=== PATIENT | male | born 2005 | race Caucasian/White ===

== ENCOUNTER 2024-02-15 13:28 | Emergency (ER) | payer OTHER ==
[~2024-02-15] VITALS: Ht 188 cm; Wt 84.8 kg
[~2024-02-15 13:28] MED LIST: CIPRO500 MG PO; METRONIDAZOLE500 MG PO; ONDANSETRON ODT4 MG SL; PANTOPRAZOLE SO40 MG PO; PREDNISONE10 MG PO; VALTREX1000 MG PO; ZYVOX100 MG/5 M PO; ZYVOX600 MG PO
[2024-02-15 13:53] LABS: BASOPHILS % 0.6 % (0.0-1.0); EOSINOPHILS # (AUTO) 0.1 (0.0-0.4); EOSINOPHILS % 0.9 % (0.0-6.0); HEMATOCRIT 44.8 % (38.2-49.6); HEMOGLOBIN 14.1 g/dL (14.0-18.0); LYMPHOCYTES # (AUTO) 2.1 (1.0-3.2); LYMPHOCYTES % 31.8 % (18.0-39.1); MEAN CORPUSCULAR HGB CONC 31.5 g/dL (31-35); MEAN CORPUSCULAR VOLUME 89.1 fL (81-99); MONOCYTES # (AUTO) 0.5 (0.2-0.8); MONOCYTES % 7.7 % (4.4-11.3); NEUTROPHILS # (AUTO) 3.8 (2.1-6.9); NEUTROPHILS % 58.8 % (38.7-80.0); PLATELET COUNT 351 x10e3/uL (140-360); RED BLOOD COUNT 5.03 x10e6/uL (4.3-5.7); RED CELL DISTRIBUTION WIDTH 12.9 % (11.7-14.4); WHITE BLOOD COUNT 6.47 x10e3/uL (4.8-10.8)
[2024-02-15] MEDS: SODIUM CHLORIDE 0.9% 1000ML 1,000 ML IV SCH (13:59)
[2024-02-15] MEDS: ONDANSETRON HCL INJ 2MG/ML 2ML 2 MG/ML VIAL IV STA (13:59)
[2024-02-15 14:13] LABS: ALBUMIN 4.6 g/dL (3.5-5.0); ALBUMIN/GLOBULIN RATIO 1.6 (0.8-2.0); BILIRUBIN,TOTAL 0.5 mg/dL (0.2-1.2); CALCIUM 10.1 mg/dL (8.4-10.2); CREATININE, SERUM 0.81 mg/dL (0.72-1.25); TOTAL PROTEIN 7.4 g/dL (6.5-8.1)
[2024-02-15 14:17] LABS: BILIRUBIN,URINE NEGATIVE (NEGATIVE); CLARITY,URINE CLEAR (CLEAR); COLOR,URINE YELLOW (YELLOW); GLUCOSE, URINE NEGATIVE (NEGATIVE); KETONES,URINE NEGATIVE (NEGATIVE); LEUKOCYTE ESTERASE ,URINE NEGATIVE (NEGATIVE); NITRITE,URINE NEGATIVE (NEGATIVE); PH,URINE 8 (5 - 7); PROTEIN,URINE DIPSTICK NEGATIVE (NEGATIVE); URINE UROBILINOGEN 0.2 mg/dL (0.2 - 1)
[2024-02-15 14:18] LABS: BACTERIA,URINE FEW /HPF; EPITHELIAL CELLS,URINE FEW /LPF; RBC,URINE 21-50 /HPF (0-5); WBC,URINE (MAN) 0-5 /HPF (0-5)
[2024-02-15] MEDS: DICYCLOMINE HCL 20 MG/2 ML VIAL IM ONE (15:16)
[2024-02-15 16:39] VITALS: PULSE 79; RESP 16; TEMP 98.8; O2SAT 99
[2024-02-15] MEDS ORDERED: DICYCLOMINE HCL20 MG PO (16:45)
[2024-02-15] MEDS ORDERED: IOPAMIDOL 370 MG/ML 100 ML INFUS..BTL INJ ONE (17:16)
== END 2024-02-15 17:19 | disposition home or self-care (01) ==
LOC: ER 14:47
DX: R50.9 Fever, unspecified (principal); K52.9 Noninfective gastroenteritis and colitis, unspecified; R10.11 Right upper quadrant pain; R11.0 Nausea
CPT/HCPCS: 36415; 74177; 80053; 81001; 85025; 99284; J0500; J2405; J2470; J7030; Q9967

== ENCOUNTER 2024-06-14 15:24 | Emergency (ER) | payer OTHER ==
[~2024-06-14] VITALS: Ht 188 cm; Wt 84.8 kg
[~2024-06-14 15:24] MED LIST changes: +DICYCLOMINE HCL20 MG PO
[2024-06-14 16:11] VITALS: PULSE 85; RESP 18; TEMP 98.2; O2SAT 100
[2024-06-14] MEDS ORDERED: MESALAMINE1.2 GM PO (16:33)
[2024-06-14] MEDS ORDERED: PREDNISONE50 MG PO (16:33)
[2024-06-14] MEDS: METHYLPREDNISOLONE SOD SUCC 125 MG/2ML VIAL IM STA (16:37)
== END 2024-06-14 16:50 | disposition home or self-care (01) ==
LOC: ER 16:14
DX: R10.84 Generalized abdominal pain (principal); K52.9 Noninfective gastroenteritis and colitis, unspecified; R11.2 Nausea with vomiting, unspecified
CPT/HCPCS: 99282; J2919